=== PATIENT | male | born 1985 | race African-American/Black ===

== ENCOUNTER 2018-05-23 07:32 | Emergency (ER) | payer MEDICAID, OTHER ==
[~2018-05-23] VITALS: Ht 175.3 cm; Wt 77.0 kg
[2018-05-23] MEDS ORDERED: IBUPROFEN 800MG TABLET PO ONE (08:15)
[2018-05-23 08:16] VITALS: BP 126/80
== END 2018-05-23 08:21 | disposition home or self-care (01) ==
LOC: ER 07:32
DX: R10.32 Left lower quadrant pain (principal); J45.909 Unspecified asthma, uncomplicated; V49.49XA Driver injured in collision with other motor vehicles in traffic accident, initial encounter; Y93.89 Activity, other specified; Y92.89 Other specified places as the place of occurrence of the external cause; Y99.8 Other external cause status; Z98.890 Other specified postprocedural states
CPT/HCPCS: 99283